=== PATIENT | male | born 1950 | race Caucasian/White ===

== ENCOUNTER 2025-02-04 01:15 | Emergency (ER) | payer MEDICARE ==
[~2025-02-04] VITALS: Ht 177.8 cm; Wt 122.5 kg
--- NOTE | 2025-02-04 01:31 | ERN ---
ED Note History of Present Illness Stated Complaint: L RIB PAIN X 12 MONTHS, SOB X 6 MONTHS Chief Complaint: Rib Pain Time Seen by MD: 01:21 Dictation: PATIENT IS A 74-YEAR-OLD MALE COMING IN TODAY WITH COMPLAINTS OF LEFT LATERAL CHEST WALL PAIN SINCE HE 2023 WHILE HE WAS IN [place]. HE STATES AT THAT TIME HE WENT TO A HOSPITAL AND THEY TOLD HIM HE WAS HAVING A HEART ATTACK HOWEVER HE ENDED UP NOT HAVING ONE. STATES THE PAIN IS WORSE WHEN HE TAKES A DEEP BREATH AND HE IS ABLE TO LOCALIZE THE PAIN TO HIS LEFT LATERAL CHEST. NO FEVER NO CHILLS NO NAUSEA VOMITING. NO ANTERIOR CHEST PAIN NO BACK PAIN. Allergies: Coded Allergies: No Known Drug Allergies (Unverified Allergy, Unknown, 02/04/25) Past Medical History Past Medical History: No Pertinent History Surgical History: None RN Note Reviewed/Agreed w/PFSH: Yes Review of System Dictation CONSTITUTIONAL: NEGATIVE EXCEPT FOR HPI HEAD/FACE: NEGATIVE EXCEPT FOR HPI EENT: NEGATIVE EXCEPT FOR HPI RESPIRATORY: NEGATIVE EXCEPT FOR HPI LEFT LATERAL INFERIOR CHEST WALL TENDERNESS GASTROINTESTINAL/ABDOMINAL: NEGATIVE EXCEPT FOR HPI GENITOURINARY: NEGATIVE EXCEPT FOR HPI MUSCULOSKELETAL: NEGATIVE EXCEPT FOR HPI INTEGUMENTARY: NEGATIVE EXCEPT FOR HPI NEUROLOGICAL/PSYCH: NEGATIVE EXCEPT FOR HPI HEMATOLOGIC/LYMPHATIC: NEGATIVE EXCEPT FOR HPI ALL SYSTEMS NEGATIVE, EXCEPT NOTED ABOVE. 13 POINT REVIEW OF SYSTEMS ASSESSED AND ALL NEGATIVE EXCEPT FOR ABOVE. Initial Vital Sign VS Vital Signs Date Time Temp Pulse Resp B/P (MAP) Pulse Ox O2 Delivery O2 Flow Rate FiO2 02/04/25 01:20 99.3 85 26 142/75 93 Room Air 02/04/25 01:27 0 21 Physical Exam Dictation VITAL SIGNS REVIEWED GENERAL APPEARANCE: ALERT, ORIENTED X 3, NO ACUTE DISTRESS, WELL DEVELOPED, NOURISHED. HEAD AND FACE: NON-TRAUMATIC. EYES: PERRL, PINK CONJUNCTIVAS, EYELID NO TRAUMA, ANTERIOR CHAMBER WITH ARCUS SENILIS. EARS: PINNAS INTACT AND NO SIGNS OF TRAUMA OR ERYTHEMA EAR CANALS CLEAR AND NO DISCHARGE TM NO ERYTHEMA NOSE: NO DISCHARGE, NO BLEEDING. OROPHARYNX: MOUTH NORMAL, TONGUE PINK, PHARYNX CLEAR,NO ERYTHEMA, TONSILS NO EXUDATES, NO ABSCESSES NOTED, MUCOUS MEMBRANE MOIST NECK: SUPPLE, NON-TENDER, NO THYROMEGALY, NO MASSES, NO JVD, NO BRUITS BREAST:DEFERRED CHEST: MILD LEFT LATERAL INFERIOR CHEST WALL TENDERNESS, NO CREPITUS, NO PARADOXICAL MOVEMENT, NO RETRACTIONS LUNGS:CLEAR, WELL-VENTILATED, SYMMETRIC, NO RALES, NO WHEEZING, NO RHONCHI, NO STRIDOR, GOOD BREATH SOUNDS BILATERALLY HEART: REGULAR RATE, REGULAR RHYTHM, NO MURMUR, NO GALLOPS VASCULAR: NO PERIPHERAL EDEMA, ABDOMEN: SOFT, POSITIVE BOWEL SOUNDS, NONDISTENDED, NO GUARDING, NONTENDER, NO REBOUND, NO MASSES NO HEPATOMEGALY, NO SPLENOMEGALY, NO WHITE'S SIGN, NO HERNIAS. RECTAL: DEFERRED GENITAL: DEFERRED NEUROLOGICAL: NORMAL SPEECH, MOTOR FUNCTION INTACT, SENSORY FUNCTION INTACT MUSCULOSKELETAL: NECK NONTENDER, FULL RANGE OF MOTION, BACK NONTENDER, FULL RANGE OF MOTION, EXTREMITIES: NONTENDER, FULL RANGE OF MOTION SKIN: COLOR PINK, DRY, NO TURGOR, NO RASH, NO LACERATIONS, NO ABRASIONS, NO CONTUSIONS. LYMPHATIC: DEFERRED Results (Laboratory/Radiology) Laboratory/Radiology Chest x-ray with the increased bronchial markings. No infiltrates or effusion Labs Reviewed?: Yes EKG Comment: EKG FROM EMS DEMONSTRATES SINUS RHYTHM/HEART RATE 84/EARLY REPOLARIZATION SEEN IN LEADS V4 V5 V6. NO Q-WAVE ED Course ED Course Orders Procedure Category Date Status Time Chest 1vw RAD 02/04/25 Taken 01:27 Ketorolac PHA 02/04/25 Complete Tromethamine 30mg/Ml 01:30 Current Medications Medications (Trade) Dose Ordered Sig/Suman Route PRN Reason Start Time Stop Time Status Last Admin Dose Admin Ketorolac Tromethamine (toRADol) 30 mg ONCE ONCE IM 02/04/25 01:30 02/04/25 01:31 DC Vital Signs Date Time Temp Pulse Resp B/P (MAP) Pulse Ox O2 Delivery O2 Flow Rate FiO2 02/04/25 01:27 98.2 84 20 129/86 95 Room Air* 0 21 02/04/25 01:20 99.3 85 26 142/75 93 Room Air 0204/patient will be discharged home with chronic rib pain and bronchitis. We will be given albuterol inhaler and Z-Steve told to see his doctor for follow up Medical Decision Making MDM Medical discharge making based on chest x-ray and pain management. Patient will be discharged home with chronic rib pain and bronchitis Given albuterol and Zithromax Given a list of local doctors DX & DISP Disposition: Discharge Departure Impression: Primary Impression: Chronic chest wall pain Additional Impression: Bronchitis Condition: Stable Scripts Albuterol Sulfate (Ventolin Hfa/Proventil Hfa/Proair Hfa) 90 Mcg Puff 2 PUFF IH Q4H for WHEEZING, #1 INHALER 0 Refills Prov: JENA ROBERTS NP 02/04/25 Azithromycin (Zithromax Tri-Steve) 500 Mg Tablet 500 MG PO DAILY for 7 Days, #7 TAB Prov: JENA ROBERTS NP 02/04/25 Additional Instructions: Follow-up with primary care provider in 1 to 2 days. Take medications as directed here in the emergency room. Okay to continue home medications unless otherwise discussed during your visit in the emergency room today. Return to your nearest emergency room if symptoms worsen or if there is no improvement. Call 911 if you need immediate assistance. Take Tylenol or Motrin [id number] as needed and if no contraindications are present. Increase oral hydration. A wound culture or urine culture was ordered here in the emergency room department please follow-up with primary care provider and advise them to get repeat ports from our facility. If you had any Stuart wrap/splints that were applied here, please do not remove them until you see your primary care or specialty. Use albuterol every 4 hours while awake for the next two days. Take azithromycin as directed until gone. , see your primary care doctor follow up and management Time of Disposition: 02:09 I have reviewed the case, and I agree with, Diagnosis and Plan JENA ROBERTS NP Feb 04, 2025 01:31
[2025-02-04] MEDS ORDERED: ALBUHFA IH (02:10)
[2025-02-04] MEDS ORDERED: AZIT500T2 PO (02:10)
[2025-02-04] MEDS: AZITHROMYCIN 250 MG TABLET PO ONE (02:41)
[2025-02-04] MEDS: ketOROlac 30MG VIAL (30MG/ML) IM ONE (02:42)
[2025-02-04 08:07] VITALS: BP 132/84; PULSE 80; RESP 17; TEMP 98; O2SAT 93
--- NOTE | 2025-02-04 09:29 | HMCIMG ---
PORTABLE CHEST RADIOGRAPH INDICATION: LEFT LATERAL CHEST WALL TENDERNESS ???SINCE 2023??? COMPARISON: None FINDINGS: Heart size is normal. The pulmonary vascularity and gladys appear normal. Left greater than right lower lobe opacities. No significant pleural effusion noted. No pneumothorax detected. IMPRESSION: Findings suggesting left greater than right lung base atelectasis an/or evolving pneumonia. Follow-up chest radiograph is advised in order to ensure resolution.
== END 2025-02-04 08:07 | disposition home or self-care (01) ==
LOC: EDH 01:15
DX: G89.29 Other chronic pain (principal); R07.89 Other chest pain; J40 Bronchitis, not specified as acute or chronic
CPT/HCPCS: 99283; 71045; 96372; J1885

== ENCOUNTER 2025-02-23 15:41 | Emergency (ER) | payer MEDICARE ==
[~2025-02-23] VITALS: Ht 177.8 cm; Wt 108.9 kg
[~2025-02-23 15:41] MED LIST: ALBUHFA IH; AZIT500T2 PO
[2025-02-23] MEDS: BENZONATATE 100 MG CAPSULE PO ONE (17:00)
[2025-02-23] MEDS: acetaMINOPHEN WITH coDEINE 1 TAB TAB PO ONE (17:00)
[2025-02-23] MEDS ORDERED: AMOX1TAB16 PO (17:50)
[2025-02-23] MEDS ORDERED: METH4TAB3 PO (17:50)
--- NOTE | 2025-02-23 17:50 | ERN ---
General Chief Complaint: Cough Stated Complaint: COUGH Time Seen by MD: 15:48 Time Seen by Midlevel: 15:48 History of Present Illness Initial Comments The patient is a 74-year-old male with a past medical history of COPD presenting to the emergency department for evaluation of cough. Patient was seen in our emergency department approximately two weeks ago and diagnosed with acute bronchitis. At that time he had a chest x-ray that showed a left lower lobe infiltrate concerning for pneumonia. He was discharged home that day on azithromycin. He does report feeling slightly improved but today he had a coughing spell so he decided to report to the ER for further evaluation. Allergies: Coded Allergies: No Known Drug Allergies (Unverified Allergy, Unknown, 02/04/25) Home Meds Active Scripts Albuterol Sulfate (Ventolin Hfa/Proventil Hfa/Proair Hfa) 90 Mcg Puff, 2 PUFF IH Q4H for WHEEZING, #1 INHALER 0 Refills Prov:JENA ROBERTS NP 02/04/25 Azithromycin (Zithromax Tri-Steve) 500 Mg Tablet, 500 MG PO DAILY for 7 Days, #7 TAB Prov:JENA ROBERTS OCCUP THERAPIST 02/04/25 Past Medical History Past Medical History: CAD Past Surgical History: Other Surgical History Other: HERNIA REPAIR ROS Dictation CONSTITUTIONAL: Negative except for HPI HEAD/FACE: Negative except for HPI EENT: Negative except for HPI RESPIRATORY: Negative except for HPI GASTROINTESTINAL/ABDOMINAL: Negative except for HPI GENITOURINARY: Negative except for HPI MUSCULOSKELETAL: Negative except for HPI INTEGUMENTARY: Negative except for HPI NEUROLOGICAL/PSYCH: Negative except for HPI HEMATOLOGIC/LYMPHATIC: Negative except for HPI All Systems Negative, Except as noted above. 13 point review of systems assessed and all negative except for above. Physical Exam Physical Exam Dictation Vital Signs reviewed General Appearance: Alert, oriented x 3, no acute distress, well developed, nourished. Head and Face: non-traumatic. Eyes: PERRL, pink conjunctivas, eyelid no trauma, anterior chamber with arcus senilis. Ears: Pinnas intact and no signs of trauma or erythema ear canals clear and no discharge TM no erythema Nose: No discharge, no bleeding. Oropharynx: Mouth normal, tongue pink, pharynx clear,no erythema, tonsils no exudates, no abscesses noted, mucous membrane moist Neck: Supple, non-tender, no thyromegaly, no masses, no JVD, no bruits Breast:Deferred Chest:No tenderness, no crepitus, no paradoxical movement, no retractions Lungs:Clear, well-ventilated, symmetric, no rales, no wheezing, no rhonchi, no stridor, good breath sounds bilaterally Heart: Regular rate, regular rhythm, no murmur, no gallops Vascular: no peripheral edema, Abdomen: Soft, positive bowel sounds, nondistended, no guarding, nontender, no rebound, no masses no hepatomegaly, no splenomegaly, no Fry's sign, no hernias. Rectal: Deferred Genital: Deferred Neurological: Normal speech, motor function intact, sensory function intact Musculoskeletal: Neck nontender, full range of motion, back nontender, full range of motion, Extremities: nontender, full range of motion Skin: Color pink, dry, no turgor, no rash, no lacerations, no abrasions, no contusions. Lymphatic: Deferred MDM MDM: Differential diagnosis: Pneumonia, COPD exacerbation, bronchitis There are no social concerns with this patient. Prescription drug management Prescriptions will include: Medrol pack, Augmentin Medical management and examination interpretation discussions were had by me with other qualified healthcare professionals as indicated for the patient's care. ED Course Orders Procedure Category Date Status Time Benzonatate 100 Mg PHA 02/23/25 Complete Capsule (Tessalon 100 17:00 Acetaminophen With PHA 02/23/25 Complete Codeine (Tylenol-Code 17:00 Chest 1vw RAD 02/23/25 Taken 16:38 Current Medications Medications (Trade) Dose Ordered Sig/Suman Route PRN Reason Start Time Stop Time Status Last Admin Dose Admin Acetaminophen/ Codeine Phosphate (TYLenol-coDEINE TAB) 1 tab ONCE ONCE PO 02/23/25 17:00 02/23/25 17:01 DC 02/23/25 17:00 Benzonatate (Tessalon 100mg Caps) 200 mg ONCE ONCE PO 02/23/25 17:00 02/23/25 17:01 DC 02/23/25 17:00 Vital Signs Date Time Temp Pulse Resp B/P (MAP) Pulse Ox O2 Delivery O2 Flow Rate FiO2 02/23/25 16:21 98.2 76 16 115/15 98 Room Air* 0 21 02/23/25 15:43 98.2 77 16 113/76 94 0 DX & DISP Disposition: Discharge Departure Impression: Primary Impression: Bronchitis Condition: Stable Scripts Amoxicillin/Potassium Clav (Amox Tr-K Clv 875-125 mg Tab) 875 Mg-125 Mg Tablet 1 EACH PO BID for 5 Days, #10 TAB 0 Refills Prov: RUBI OLEA 02/23/25 Methylprednisolone (Medrol) 4 Mg Tab.ds.pk 1 TAB PO AD for 6 Days, #21 TAB 0 Refills 6 on day 1 then reduce by one tablet daily until gone Prov: RUBI OLEA 02/23/25 Referrals: SELF,REFERRAL (PCP) I have reviewed the case, and I agree with, Diagnosis and Plan I performed the substantive portion of the visit. I have reviewed and personally made and approve the management plan that is documented in the note by myself or the DANIS. I acknowledge for responsibility for the patient's management plan. RUBI OLEA Feb 23, 2025 17:50
[2025-02-23 17:55] VITALS: BP 114/56; PULSE 74; RESP 16; TEMP 98.3; O2SAT 98
--- NOTE | 2025-02-23 18:11 | HMCIMG ---
INDICATION: cough TECHNIQUE: CHEST 1VW COMPARISON: 02/04/2025 FINDINGS AND IMPRESSION: Prominent bilateral interstitial markings which may represent bronchitis or vascular congestion in the proper clinical setting. Cardiac silhouette is within normal limits. Mild degenerative changes of the spine. The visualized upper abdomen appears unremarkable.
== END 2025-02-23 18:01 | disposition home or self-care (01) ==
LOC: EDH 15:41
DX: J40 Bronchitis, not specified as acute or chronic (principal); I25.10 Atherosclerotic heart disease of native coronary artery without angina pectoris; J44.9 Chronic obstructive pulmonary disease, unspecified; Z79.899 Other long term (current) drug therapy; Z98.890 Other specified postprocedural states
CPT/HCPCS: 71045; 99283